=== PATIENT | female | born 1975 | race Caucasian/White ===

== ENCOUNTER 2022-05-17 05:42 | Day surgery (SDC) | payer OTHER ==
[2022-05-16 09:07] VITALS: BMI 21.6
[2022-05-17] MEDS ORDERED: fentaNYL PF 100 MCG/2 ML SYRINGE ONE (06:24)
[2022-05-17] MEDS ORDERED: HYDROmorphone 0.5 MG/0.5 ML SYRINGE ONE (06:25)
[2022-05-17] MEDS ORDERED: SUGAMMADEX SODIUM 200 MG/2 ML VIAL ONE (06:25)
[2022-05-17] MEDS ORDERED: Dexmedetomidine 200 MCG/2 ML VIAL ONE (06:25)
[2022-05-17] MEDS ORDERED: Thrombin 5000 UNITS/5 ML VIAL ONE (06:29)
[2022-05-17] MEDS ORDERED: Sodium Chloride 0.9% 100 ML ONE ×2 (06:40→10:28)
[2022-05-17] MEDS ORDERED: CEFAZOLIN 2 GM VIAL ONE ×2 (06:40→10:28)
[2022-05-17] MEDS ORDERED: Midazolam HCl 2 mg/2 ml Vial ONE (06:51)
[2022-05-17] MEDS ORDERED: Scopolamine 1.5 mg/72 hour Patch ONE (06:51)
[2022-05-17] MEDS ORDERED: Famotidine/PF 20 mg/2ml Vial ONE (06:51)
[2022-05-17] MEDS ORDERED: Metoclopramide HCl 10 MG/2 ML VIAL ONE (07:16)
[2022-05-17] MEDS ORDERED: PROPOFOL 200 MG/20 ML VIAL ONE (07:16)
[2022-05-17] MEDS ORDERED: Ketorolac Tromethamine 30 MG/ML VIAL ONE (07:16)
[2022-05-17] MEDS ORDERED: Glycopyrrolate 0.2 MG/ML 5 ML SYRINGE ONE (07:16)
[2022-05-17] MEDS ORDERED: PHENYLEPHRINE-NS 100 MCG/ML 10 ML SYRINGE ONE (07:16)
[2022-05-17] MEDS ORDERED: Ondansetron PF 4 MG/2 ML Vial ONE (07:16)
[2022-05-17] MEDS ORDERED: Lidocaine 1% PF 5 ML VIAL ONE (07:16)
[2022-05-17] MEDS ORDERED: Rocuronium Bromide 10 MG/ML (10ML VIAL) ONE (07:16)
[2022-05-17] MEDS ORDERED: Dexamethasone 20 MG/5 ML VIAL ONE (07:16)
[2022-05-17] MEDS ORDERED: Fentanyl 100 MCG/2 ML VIAL ONE (09:11)
[2022-05-17] MEDS ORDERED: Acetaminophen/Codeine 30-300mg Tablet ONE (10:28)
== END 2022-05-17 11:40 | disposition home or self-care (01) ==
LOC: SDC 05:42
PROVIDERS: ATTEND Neurological Surgery
PROC: 0RG10A0 Fusion of Cervical Vertebral Joint with Interbody Fusion Device, Anterior Approach, Anterior Column, Open Approach (ICD-10-PCS; principal; 2022-05-17)
DX: M50.122 Cervical disc disorder at C5-C6 level with radiculopathy (principal); M48.02 Spinal stenosis, cervical region; G89.4 Chronic pain syndrome; Z88.5 Allergy status to narcotic agent
CPT/HCPCS: C1713; C1889; J1100; J1170; J1885; J2250; J2405; J2704; J2765; J3010; J3490; S0028

== ENCOUNTER 2023-02-28 07:41 | Day surgery (SDC) | payer OTHER ==
[2023-02-26 13:46] VITALS: BMI 21.6
[2023-02-28] MEDS ORDERED: Midazolam HCl 2 mg/2 ml Vial ONE (10:09)
[2023-02-28] MEDS ORDERED: PROPOFOL 20 ML ONE (10:14)
[2023-02-28] MEDS ORDERED: Fentanyl 250 MCG/5 ML VIAL ONE (10:15)
[2023-02-28] MEDS ORDERED: Ketorolac Tromethamine 30 MG/ML VIAL ONE ×2 (10:15→10:56)
[2023-02-28] MEDS ORDERED: Rocuronium Bromide 10 MG/ML (10ML VIAL) ONE ×2 (10:15→10:56)
[2023-02-28] MEDS ORDERED: Dexamethasone 4 mg/ml Vial ONE ×2 (10:16→13:34)
[2023-02-28] MEDS ORDERED: Ondansetron PF 4 MG/2 ML Vial ONE ×2 (10:16→10:56)
[2023-02-28] MEDS ORDERED: EPINEPHrine 1 MG/ML VIAL ONE (10:30)
[2023-02-28] MEDS ORDERED: Bupivacaine PF 0.5% 30 ML VIAL ONE (10:30)
[2023-02-28] MEDS ORDERED: Thrombin 5000 UNITS/5 ML VIAL ONE (10:30)
[2023-02-28] MEDS ORDERED: CEFAZOLIN 2 GM VIAL ONE ×2 (10:35→15:26)
[2023-02-28] MEDS ORDERED: Sodium Chloride 0.9% 100 ML ONE ×2 (10:35→15:26)
[2023-02-28] MEDS ORDERED: Glycopyrrolate 0.2 MG/ML 5 ML SYRINGE ONE ×2 (10:56→11:51)
[2023-02-28] MEDS ORDERED: NEOSTIGMINE 3 MG/3 ML SYR 3 MG/3 ML SYRINGE ONE ×2 (10:56→11:51)
[2023-02-28] MEDS ORDERED: PHENYLEPHRINE-NS 100 MCG/ML 10 ML SYRINGE ONE ×2 (10:56→11:29)
[2023-02-28] MEDS ORDERED: PROPOFOL 200 MG/20 ML VIAL ONE (10:56)
[2023-02-28] MEDS ORDERED: Dexamethasone 20 MG/5 ML VIAL ONE (10:56)
[2023-02-28] MEDS ORDERED: Sevoflurane 250 ML INH ANEST BOTTLE ONE (11:21)
[2023-02-28] MEDS ORDERED: fentaNYL 50 mcg/mL 1 mL Vial ONE ×4 (12:34→14:32)
[2023-02-28] MEDS ORDERED: Acetaminophen/Codeine 30-300mg Tablet ONE (15:37)
== END 2023-02-28 16:22 | disposition home or self-care (01) ==
LOC: SDC 07:41
PROVIDERS: ATTEND Neurological Surgery
PROC: 01N10ZZ Release Cervical Nerve, Open Approach (ICD-10-PCS; principal; 2023-02-28)
DX: M54.12 Radiculopathy, cervical region (principal); G89.29 Other chronic pain; F10.90 Alcohol use, unspecified, uncomplicated; Z90.710 Acquired absence of both cervix and uterus; Z91.018 Allergy to other foods; Z79.899 Other long term (current) drug therapy
CPT/HCPCS: C1713; J0171; J1100; J1885; J2250; J2405; J2704; J3010; J3490; S0020